=== PATIENT | female | born 2000 | race Two or more races ===

== ENCOUNTER 2024-09-25 09:41 | Inpatient (IN) | payer MEDICAID, SELFPAY ==
--- NOTE | 2024-09-22 12:04 | ESHP_ITS ---
RE: BIRD VAZQUEZ : 2000 DATE OF ADMISSION: 09/25/2024 HISTORY OF PRESENT ILLNESS: This is a 23-year-old 2, para 1-0-0-1 with a due date of 09/18 with intrauterine at 41 weeks and 0 days who presents for induction of labor for post dates. The patient's care was uncomplicated. She denies any leaking or bleeding. She reports normal movement. ALLERGIES: NO KNOWN DRUG ALLERGIES. MEDICATIONS: multivitamins. PAST MEDICAL HISTORY: Denies. SOCIAL HISTORY: She denies any alcohol, drug use, or smoking. The patient refuses blood and blood products for rastafari reasons. FAMILY HISTORY: Hypertension. OBSTETRIC HISTORY: In 06/2018, 40 week, normal vaginal delivery, 8 pounds 7- ounce female, epidural, no complications. PAST SURGICAL HISTORY: Denies. REVIEW OF SYSTEMS: She denies any chest pain, palpitations, cough, fever, shortness of breath, or lower extremity pain. PHYSICAL EXAMINATION: VITAL SIGNS: Blood pressure 137/77, heart rate 88, respirations 18, temperature 98.2, and weight 239 pounds. HEENT: Oropharynx and sclerae are clear. LUNGS: Clear to auscultation bilaterally. HEART: Regular rate and rhythm. ABDOMEN: Gravid term size consistent with estimated weight, 8 pounds. PELVIC: See RN notes. EXTREMITIES: Nontender. SKIN: No gross rashes or lesions. NEUROLOGIC: No focal deficits. ASSESSMENT AND PLAN: Intrauterine at 41 weeks 0 days, post dates, induction, anticipate spontaneous vaginal delivery. Informed consent was obtained. The patient was made aware of the risks, complications, alternatives, and benefits of the proposed procedure and she agrees. She is aware of the risk of operative vaginal delivery and serum delivery and agrees with these modes of delivery if indicated. DT: 09:13:09 TT: 12:02:00 Ref: [id number] - TID: [id number] MTDD
[2024-09-25] VITALS (20 sets, daily range): BP systolic 0–138; BP diastolic 0–88; PULSE 81–101; RESP 18–19; TEMP 36.7–37.3; BMI 39.0
--- NOTE | 2024-09-25 10:59 | XR_ITS ---
Examination: age Limited TECHNIQUE: Limited transabdominal sonographic images pelvis Exam date and time: September 25, 2024 11:21 AM INDICATIONS: Labor induction today, unknown presentation FINDINGS: Viable intrauterine gestation cephalic presentation spine anterior Cardiac motion 135 BPM IMPRESSION: Viable intrauterine gestation cephalic presentation
[2024-09-25 11:10] LABS: Basophils % (Auto) 0 % (0-2.5); Eosinophils # (Auto) 0.1 Thou/mm3 (0.0-0.5); Eosinophils % (Auto) 1 % (0-10); Hematocrit 38.4 % (36.0-46.0); Hemoglobin 13.4 g/dL (12.0-16.0); Immature Granulocytes % (Auto) 1 % (0-0); Immature Granulocytes Auto 0.11 Thou/mm3 (0.00-0.00); Lymphocytes # (Auto) 2.5 Thou/mm3 (1.0-4.8); Lymphocytes % (Auto) 22 % (10-50); Mean Corpuscular HGB Conc 34.9 g/dl (31.0-37.0); Mean Corpuscular Hemoglobin 29.1 pg (25.0-35.0); Mean Corpuscular Volume 84 fL (80-100); Monocytes # (Auto) 0.8 Thou/mm3 (0.0-0.8); Monocytes % (Auto) 7 % (0-12); Neutrophils # (Auto) 7.7 Thou/mm3 (1.8-7.7); Neutrophils % (Auto) 69 % (37-80); Nucleated Red Blood Cell % 0 /100 WBC (0); Platelet Count 237 Thou/mm3 (140-440); RDW Standard Deviation 38.8 fL (36.4-46.3); White Blood Count 11.1 Thou/mm3 (3.6-11.0)
[2024-09-25 12:18] LABS: Syphilis Nonreactive (Nonreactive)
[2024-09-25] MEDS: DINOPROSTONE 10 MG VAG.SUPP VAGINAL (13:15)
[2024-09-26] VITALS (92 sets, daily range): BP systolic 0–165; BP diastolic 0–86; PULSE 70–123; RESP 16–18; TEMP 36.8–37.2; O2SAT 91–100
[2024-09-26] MEDS: MISOPROSTOL 50 mCg TABLET PO ×3 (03:05→11:46)
[2024-09-26] MEDS: fentaNYL CIT INJ 50 mCg/ML AMP 2ML 100 MCG IV ×2 (04:04→07:44)
--- NOTE | 2024-09-26 07:31 | PD.LDPN ---
Documentation for date of: 09/26/24 OB Labor Progress Note Pain Control Comments: Fentanyl Pelvic Exam Dilation (cm): 3 Amniotic membrane status: Intact Contractions Contraction frequency: q 3-4 min Status status: Category l Assessment and Plan Comments: Cervical ripening Induction of Labor Ongoing Anticipate .
[2024-09-26] MEDS: RINGERS LACTATED 1000 ML 1,000 ML 100 ML IV (10:16)
[2024-09-26] MEDS: TRANEXAMIC ACID 1,000 MG IVPB 1,000 MG/100 ML BAG 200 MG IV (13:25)
[2024-09-26] MEDS: MISOPROSTOL 200 mCg TABLET 800 MCG PR (13:40)
[2024-09-26] MEDS: OXYTOCIN in NS 20 units 20 UNIT/1,000 ML BAG 125 UNIT IV (13:56)
[2024-09-26] MEDS: OXYTOCIN INJ 10 UNIT/ML VIAL IM (14:59)
[2024-09-26] MEDS: BENZO/LANO/ALOE (Dermoplast) 60 GM CAN 1 SPRAY TOP (19:04)
[2024-09-26 19:24] LABS: Basophils % (Auto) 0 % (0-2.5); Eosinophils % (Auto) 0 % (0-10); Hematocrit 37.6 % (36.0-46.0); Hemoglobin 13.2 g/dL (12.0-16.0); Immature Granulocytes % (Auto) 1 % (0-0); Immature Granulocytes Auto 0.08 Thou/mm3 (0.00-0.00); Lymphocytes # (Auto) 2.6 Thou/mm3 (1.0-4.8); Lymphocytes % (Auto) 16 % (10-50); Mean Corpuscular HGB Conc 35.1 g/dl (31.0-37.0); Mean Corpuscular Hemoglobin 29.2 pg (25.0-35.0); Mean Corpuscular Volume 83 fL (80-100); Monocytes # (Auto) 1.6 Thou/mm3 (0.0-0.8); Monocytes % (Auto) 10 % (0-12); Neutrophils # (Auto) 11.8 Thou/mm3 (1.8-7.7); Neutrophils % (Auto) 73 % (37-80); Nucleated Red Blood Cell % 0 /100 WBC (0); Platelet Count 241 Thou/mm3 (140-440); RDW Standard Deviation 38.7 fL (36.4-46.3); Red Blood Count 4.52 Miln/mm3 (4.00-5.20); White Blood Count 16.2 Thou/mm3 (3.6-11.0)
--- NOTE | 2024-09-26 20:24 | PD.LDDELS ---
Data (Bird) Data Hx Section: No : 2 Para: 1 Term: 1 : 0 : 0 Delivery Data (Bird) Labor Data Induction: Yes ROM Date: 09/26/24 ROM Time: 12:40 Rupture Type: SROM Amniotic Fluid: Clear Delivery Data EDC: 09/18/24 EDC calculated by:: LMP/early US confirmation Labor Onset Stage 1 Date: 09/26/24 Labor Onset Stage 1 Time: 12:00 Labor Onset Stage 2 Date: 09/26/24 Labor Onset Stage 2 Time: 13:00 Delivery Date: 09/26/24 Delivery Time: 13:09 Gestational age (weeks): 41 Gestational age (days): 1 Placenta Delivery Date: 09/26/24 Placenta Delivery Time: 13:15 Delivered by: Paul Esparza Delivery nurse: Loulou Klein Other staff at delivery: Nursery Nurse Other staff at delivery: [place] Delivery Method Delivery: Vaginal Delivery Type: Spontaneous Presentation: Vertex Position: OA Anesthesia Type Primary Anesthesia: Epidural Placenta Placenta Delivery: Spontaneous Episiotomy Episiotomy: None Lacerations #1: Labial: Bilateral 2nd degree #2: Perineal: 2nd degree Perineal repair Sutures used for repair: 3.0 Chromic EBL Estimated blood loss (ml): 250 Umbilical Cord Umbilical Vessels: 3 Nuchal Cord: None Body Cord: None Additional Procedures None Complications Complications: None Data (Bird) [place] Data Infant Gender: Male Infant Weight Grams: 3585 1 Minute Total: 8 5 Minute Total: 9
--- NOTE | 2024-09-26 20:26 | ESDS_ITS ---
DS: Providers Provider Date of admission: 09/25/24 09:41 Primary care physician: Kerri Almaguer NP Admitting Provider: Paul Esparza MD Attending Provider on Admission: Paul Esparza MD Consults: 09/26/24 13:32 Referral Routine Comment: Attending Provider on DC: Paul Esparza MD Discharging Provider: Paul Esparza MD DS: Diagnosis Problem List Completed Was Problem List Reviewed/Reconciled?: Yes Summary/Hosp Course Time Spent with Patient Time attestation: Total time spent providing and/or coordinating discharge services: Exam Vital Signs Temp Pulse Resp BP Pulse Ox O2 Del Method 98.2 F 88 17 137/81 H 97 Room Air 09/26/24 15:43 09/26/24 14:57 09/26/24 15:43 09/26/24 15:43 09/26/24 15:43 09/26/24 15:43 Discharge Plan Plan Patient Disposition: HOME (Self Care) Patient condition on transfer: Stable Prescriptions/Referrals Prescriptions/Med Rec: New ibuprofen 600 mg tablet 600 mg PO Q6H PRN (Reason: pain) Qty: 30 0RF Continued albuterol sulfate 90 mcg/actuation HFA aerosol inhaler 2 puff inhalation Q8H PRN (Reason: shortness of breath or wheezing) Qty: 6.7 0RF Vitamin 27 mg iron- 800 mcg Tablet 1 tab PO QDAY Discontinued Mucinex Fast-Max Congest-Cough 2.5-5-100 mg/5 mL liquid 15 ml PO Q6HR Qty: 266 0RF Referrals: Rosina C GR[employer]KEEPER SUPERVISOR,Kerri Rodriguez NP [Primary Care Provider] - Patient/Caregiver Discharge Instructions Discharge Activity: activity as tolerated Other Discharge Activity Instructions:: Follow up office 6 week. Education Materials: After a Vaginal , Breast Care After , Incision Care After Vaginal , Nutrition While Print Language: Uzbek Stand Alone Forms: Sweetie Award Info., Patient Portal Info Letter Discharge Order Discharge Orders: Discharge (Routine); Ordered 09/27/24 Ordered By: Paul Esparza Planned Discharge Date 09/27/24
[2024-09-27 00:36] VITALS: BP 130/72; PULSE 89; RESP 16; TEMP 37; O2SAT 99
[2024-09-27 04:20] VITALS: BP 121/79; PULSE 89; RESP 17; TEMP 36.9; O2SAT 97
[2024-09-27 08:00] VITALS: BP 127/74; PULSE 88; RESP 18; TEMP 36.7; O2SAT 97
[2024-09-27] MEDS: PRENATAL VITAMIN/FE FUM/FA TABLET 1 TAB PO (08:23)
--- NOTE | 2024-09-27 08:43 | ESPR_ITS ---
RE: BIRD VAZQUEZ : 2000 DATE OF SERVICE: 09/27/2024 S: day #1, the patient denies any problem or complaints. She is voiding. She is ambulating. She is tolerated regular diet. She is passing flatus. She denies any excessive vaginal bleeding. She denies any dizziness or lightheadedness. She denies any chest pain, palpitations, shortness of breath or lower extremity pain. O: Vital Signs: Blood pressure 121/79, heart rate 89, respirations 17, temperature 98.4, and pulse ox is 97% on room air. Lungs: Clear to auscultation bilaterally. Heart: Regular rate and rhythm. Abdomen: Fundus is firm, nontender. Extremities: Nontender. Laboratory Data: Hemoglobin pre-delivery is 13.4 and post-delivery is 13.2. A: day #1, status post spontaneous vaginal delivery. P: Discharge home. Discharge instructions given. Follow up in the office in 6 weeks. DT: 08:19:18 TT: 08:41:00 Ref: [id number] - TID: [id number]
[2024-09-27 11:00] VITALS: BP 128/78; PULSE 95; RESP 18; TEMP 36.9; O2SAT 97
== END 2024-09-27 21:48 | disposition home or self-care (01) | DRG 560 ==
LOC: S4SX 09-26 14:22 → S4NX 09-27 10:29 → S4SX 09-27 21:56
PROVIDERS: Admitting Provider Specialist; PCP Nurse Practitioner Family; Visit Provider Specialist
DX: O48.0 Post-term pregnancy (principal); Z37.0 Single live birth; Z3A.41 41 weeks gestation of pregnancy; O70.1 Second degree perineal laceration during delivery
CPT/HCPCS: 36415; 76815; 85025; 86780; 86850; 86900; 86901; J2590; J2795; J3010; J3490; J7120; S0191; A9270

== ENCOUNTER → 2025-06-27 | Outpatient (BNVA) | payer MEDICAID, SELFPAY | END | disposition home or self-care (01) | PROVIDERS: PCP Nurse Practitioner Primary Care; Referring Provider Nurse Practitioner Primary Care; Visit Provider Nurse Practitioner Primary Care | DX: Z00.00 Encounter for general adult medical examination without abnormal findings (principal); F41.1 Generalized anxiety disorder; Z13.31 Encounter for screening for depression; E66.812 Obesity, class 2; Z68.37 Body mass index [BMI] 37.0-37.9, adult | CPT/HCPCS: 99203 ==